=== PATIENT | male | born 1940 | race Caucasian/White ===

== ENCOUNTER 2019-07-12 12:59 | Inpatient (IN) ==
[2019-07-12] MEDS ORDERED: Dextrose Gel 15 GM/37.5 ML TUBE PO PRN ×2 (14:16)
[2019-07-12] MEDS ORDERED: *HR* Dextrose 50 % in Water (Vial) 50 ML VIAL IVP PRN (14:16)
[2019-07-12] MEDS ORDERED: D5% in Water 1,000 ML IVC PRN (14:16)
[2019-07-12] MEDS: Insulin LISPRO 300 UNITS/3 ML VIAL SQ SCH ×2 (15:54→20:43)
[2019-07-12] MEDS: Ipratropium/Albuterol Neb 3 ML IH PRN ×2 (16:21→22:14)
[2019-07-12] MEDS: *HR* LORazepam 0.5 MG TABLET PO PRN ×2 (16:54→23:37)
[2019-07-12] MEDS ORDERED: *HR* LORazepam 0.5 MG TABLET PO SCH (21:00)
[2019-07-12] MEDS: Budesonide/Formoterol 160/4.5 1 PUFF INH IH SCH (22:15)
[2019-07-13 05:50] LABS: Basophils % 0.1 %; Eosinophils % 0.2 %; Hematocrit 34.7 % (37.5-50.1); Hemoglobin 10.6 g/dL (12.9-16.9); Immature Granulocytes % 1.1 % (0-4); Lymphocytes # 0.7 K/mcL (0.6-4.6); Lymphocytes % 8.2 %; Mean Corpuscular HGB Conc 30.5 g/dL (31.6-35.5); Mean Corpuscular Hemoglobin 28.3 pg (28.0-33.3); Mean Corpuscular Volume 92.8 fL (83.0-100.0); Mean Platelet Volume 9.3 fL (9.4-12.4); Monocytes # 0.7 K/mcL (0.0-1.3); Monocytes % 7.8 %; Neutrophils # 7.2 K/mcL (1.6-8.9); Platelet Count 175 K/mcL (140-400); Red Blood Count 3.74 M/mcL (4.19-5.50); Red Cell Distribution Width 14.5 % (11.5-14.5); Segmented Neutrophils % 82.6 %; White Blood Count 8.7 K/mcL (4.3-11.1)
[2019-07-13 06:38] LABS: INR 0.9; Prothrombin Time 10.6 Seconds (9.4-12.1)
[2019-07-13 06:40] LABS: Activated Partial Thrombo Time 25.5 Seconds (26.0-36.0)
[2019-07-13 07:05] LABS: Carbon Dioxide 43 mEq/L (23-29)
[2019-07-13] MEDS: methylPREDNISolone 4 MG TABLET PO SCH ×4 (07:28→20:13)
[2019-07-13 08:03] LABS: BUN/Creatinine Ratio 60 (6-26); Blood Urea Nitrogen 35 mg/dL (8-23); Chloride 94 mEq/L (98-107); Glucose 117 mg/dL (70-105); Osmolality,Calculated 297 (280-300); Potassium 4.7 mEq/L (3.5-5.1); Sodium 139 mEq/L (136-145); eGFR For African Americans > 60 (> 60); eGFR For Non-African Americans > 60 (> 60)
[2019-07-13] MEDS: Insulin LISPRO 300 UNITS/3 ML VIAL SQ SCH ×4 (08:25→20:11)
[2019-07-13] MEDS: Insulin DETEMIR 100 UNIT/ML X5UNITS SQ SCH (08:26)
[2019-07-13] MEDS: levoFLOXacin 250 MG TABLET PO SCH (08:27)
[2019-07-13] MEDS: *HR* LORazepam 0.5 MG TABLET PO PRN ×3 (08:28→23:37)
[2019-07-13] MEDS: Ipratropium/Albuterol Neb 3 ML IH PRN ×2 (10:20→21:59)
[2019-07-13] MEDS: Budesonide/Formoterol 160/4.5 1 PUFF INH IH SCH ×2 (10:21→21:59)
[2019-07-13] MEDS: Lactobacillus 1 EACH CAP.SPRINK PO SCH (20:11)
[2019-07-14] MEDS: methylPREDNISolone 4 MG TABLET PO SCH ×3 (06:22→17:04)
[2019-07-14] MEDS: *HR* Enoxaparin 40 MG/0.4 ML SYRINGE SQ SCH (06:22)
[2019-07-14 06:56] LABS: Basophils % 0.1 %; Hematocrit 36.1 % (37.5-50.1); Hemoglobin 10.6 g/dL (12.9-16.9); Immature Granulocytes % 1.5 % (0-4); Lymphocytes # 0.3 K/mcL (0.6-4.6); Lymphocytes % 3.7 %; Mean Corpuscular HGB Conc 29.4 g/dL (31.6-35.5); Mean Corpuscular Volume 95.3 fL (83.0-100.0); Mean Platelet Volume 9.2 fL (9.4-12.4); Monocytes # 0.5 K/mcL (0.0-1.3); Monocytes % 5.8 %; Neutrophils # 7.1 K/mcL (1.6-8.9); Platelet Count 183 K/mcL (140-400); Red Blood Count 3.79 M/mcL (4.19-5.50); Red Cell Distribution Width 14.3 % (11.5-14.5); Segmented Neutrophils % 88.9 %; White Blood Count 7.9 K/mcL (4.3-11.1)
[2019-07-14] MEDS: Insulin LISPRO 300 UNITS/3 ML VIAL SQ SCH ×4 (07:40→20:40)
[2019-07-14] MEDS: Lactobacillus 1 EACH CAP.SPRINK PO SCH ×2 (07:40→20:38)
[2019-07-14] MEDS: levoFLOXacin 250 MG TABLET PO SCH (07:40)
[2019-07-14 08:00] LABS: Alanine Aminotransferase 48 Units/L (7-52); Albumin 3.2 g/dL (3.5-5.7); Albumin/Globulin Ratio 1.6 (1.1-2.2); Alkaline Phosphatase 56 Units/L (34-104); Aspartate Amino Transferase 27 Units/L (13-39); BUN/Creatinine Ratio 45 (6-26); Bilirubin,Total 0.8 mg/dL (0.3-1.0); Blood Urea Nitrogen 33 mg/dL (8-23); Carbon Dioxide 44 mEq/L (23-29); Chloride 92 mEq/L (98-107); Glucose 372 mg/dL (70-105); Osmolality,Calculated 306 (280-300); Potassium 5.1 mEq/L (3.5-5.1); Sodium 137 mEq/L (136-145); Total Protein 5.2 g/dL (6.4-8.9); eGFR For African Americans > 60 (> 60); eGFR For Non-African Americans > 60 (> 60)
[2019-07-14] MEDS: Insulin DETEMIR 100 UNIT/ML X5UNITS SQ SCH (08:00)
[2019-07-14 09:17] LABS: Estimated Average Glucose 269 mg/dl
[2019-07-14] MEDS: *HR* LORazepam 0.5 MG TABLET PO PRN ×2 (09:51→18:41)
[2019-07-14 09:55] LABS: % Iron Saturation 40 % (20-55); Ferritin 34 ng/mL (20-250); Iron 135 mcg/dL (65-175); Transferrin 241 mg/dL (203-362)
[2019-07-14] MEDS: Budesonide/Formoterol 160/4.5 1 PUFF INH IH SCH ×2 (10:48→21:08)
[2019-07-14] MEDS: Ipratropium/Albuterol Neb 3 ML IH PRN ×2 (13:53→22:25)
[2019-07-14] MEDS ORDERED: methylPREDNISolone 4 MG TABLET PO SCH (21:00)
[2019-07-15] MEDS: *HR* Enoxaparin 40 MG/0.4 ML SYRINGE SQ SCH (05:58)
[2019-07-15] MEDS: methylPREDNISolone 4 MG TABLET PO SCH ×4 (05:59→21:08)
[2019-07-15] MEDS: levoFLOXacin 250 MG TABLET PO SCH (09:13)
[2019-07-15] MEDS: Lactobacillus 1 EACH CAP.SPRINK PO SCH ×2 (09:13→21:05)
[2019-07-15] MEDS: Insulin LISPRO 300 UNITS/3 ML VIAL SQ SCH ×4 (09:21→21:05)
[2019-07-15] MEDS: Insulin DETEMIR 100 UNIT/ML X5UNITS SQ SCH (09:22)
[2019-07-15] MEDS: Budesonide/Formoterol 160/4.5 1 PUFF INH IH SCH ×2 (10:18→22:36)
[2019-07-15] MEDS: *HR* LORazepam 0.5 MG TABLET PO PRN (11:35)
[2019-07-15] MEDS: Ipratropium/Albuterol Neb 3 ML IH PRN ×2 (11:38→18:06)
[2019-07-15] MEDS ORDERED: Insulin DETEMIR 100 UNIT/ML X5UNITS SQ SCH (21:00)
[2019-07-16] MEDS: methylPREDNISolone 4 MG TABLET PO SCH ×3 (05:17→20:43)
[2019-07-16] MEDS: *HR* Enoxaparin 40 MG/0.4 ML SYRINGE SQ SCH (05:17)
[2019-07-16 07:32] LABS: Basophils % 0.2 %; Eosinophils # 0.1 K/mcL (0.0-0.6); Eosinophils % 0.7 %; Hematocrit 36.1 % (37.5-50.1); Immature Granulocytes % 1.7 % (0-4); Lymphocytes # 0.6 K/mcL (0.6-4.6); Mean Corpuscular HGB Conc 30.5 g/dL (31.6-35.5); Mean Corpuscular Hemoglobin 28.6 pg (28.0-33.3); Mean Corpuscular Volume 93.8 fL (83.0-100.0); Monocytes # 0.5 K/mcL (0.0-1.3); Monocytes % 5.9 %; Neutrophils # 7.3 K/mcL (1.6-8.9); Platelet Count 171 K/mcL (140-400); Red Blood Count 3.85 M/mcL (4.19-5.50); Red Cell Distribution Width 14.6 % (11.5-14.5); Segmented Neutrophils % 84.5 %; White Blood Count 8.7 K/mcL (4.3-11.1)
[2019-07-16 07:52] LABS: BUN/Creatinine Ratio 48 (6-26); Blood Urea Nitrogen 29 mg/dL (8-23); Carbon Dioxide 45 mEq/L (23-29); Chloride 94 mEq/L (98-107); Glucose 170 mg/dL (70-105); Magnesium 1.9 mg/dL (1.6-2.6); Osmolality,Calculated 296 (280-300); Potassium 4.7 mEq/L (3.5-5.1); Sodium 138 mEq/L (136-145); eGFR For African Americans > 60 (> 60); eGFR For Non-African Americans > 60 (> 60)
[2019-07-16] MEDS: Insulin LISPRO 300 UNITS/3 ML VIAL SQ SCH ×4 (08:07→20:43)
[2019-07-16] MEDS: Lactobacillus 1 EACH CAP.SPRINK PO SCH ×2 (08:08→20:43)
[2019-07-16] MEDS: *HR* LORazepam 0.5 MG TABLET PO PRN (08:08)
[2019-07-16] MEDS: Budesonide/Formoterol 160/4.5 1 PUFF INH IH SCH ×2 (09:05→22:08)
[2019-07-16] MEDS: Ipratropium/Albuterol Neb 3 ML IH PRN ×2 (09:05→17:23)
[2019-07-16] MEDS: Insulin DETEMIR 100 UNIT/ML X5UNITS SQ SCH (20:43)
[2019-07-17] MEDS: Ipratropium/Albuterol Neb 3 ML IH PRN ×3 (01:51→15:33)
[2019-07-17] MEDS: *HR* Enoxaparin 40 MG/0.4 ML SYRINGE SQ SCH (05:16)
[2019-07-17] MEDS: methylPREDNISolone 4 MG TABLET PO SCH ×2 (05:16→20:33)
[2019-07-17 06:03] LABS: BUN/Creatinine Ratio 47 (6-26); Blood Urea Nitrogen 27 mg/dL (8-23); Calcium 8.1 mg/dL (8.6-10.3); Carbon Dioxide 43 mEq/L (23-29); Chloride 95 mEq/L (98-107); Glucose 82 mg/dL (70-105); Osmolality,Calculated 292 (280-300); Potassium 5.1 mEq/L (3.5-5.1); Sodium 139 mEq/L (136-145); eGFR For African Americans > 60 (> 60); eGFR For Non-African Americans > 60 (> 60)
[2019-07-17] MEDS: Lactobacillus 1 EACH CAP.SPRINK PO SCH ×2 (07:29→20:33)
[2019-07-17] MEDS: Insulin LISPRO 300 UNITS/3 ML VIAL SQ SCH ×4 (07:30→20:33)
[2019-07-17] MEDS: Insulin DETEMIR 100 UNIT/ML X5UNITS SQ SCH ×2 (08:04→20:33)
[2019-07-17] MEDS: Budesonide/Formoterol 160/4.5 1 PUFF INH IH SCH ×2 (08:18→23:20)
[2019-07-17] MEDS: *HR* LORazepam 0.5 MG TABLET PO PRN (13:39)
[2019-07-18] MEDS: Levalbuterol Neb 1.25 MG/3 ML IH PRN ×4 (03:12→22:00)
[2019-07-18] MEDS: *HR* LORazepam 0.5 MG TABLET PO PRN ×3 (03:27→19:29)
[2019-07-18] MEDS: *HR* Enoxaparin 40 MG/0.4 ML SYRINGE SQ SCH (06:07)
[2019-07-18] MEDS ORDERED: methylPREDNISolone 4 MG TABLET PO SCH (06:30)
[2019-07-18] MEDS: Lactobacillus 1 EACH CAP.SPRINK PO SCH ×2 (08:40→19:29)
[2019-07-18] MEDS: Insulin DETEMIR 100 UNIT/ML X5UNITS SQ SCH ×2 (08:41→20:45)
[2019-07-18] MEDS: Insulin LISPRO 300 UNITS/3 ML VIAL SQ SCH ×4 (08:41→20:53)
[2019-07-18] MEDS: Tiotropium 18 MCG inhalation IH SCH (11:12)
[2019-07-18] MEDS: Budesonide/Formoterol 160/4.5 1 PUFF INH IH SCH ×2 (11:13→22:00)
[2019-07-19] MEDS: *HR* Enoxaparin 40 MG/0.4 ML SYRINGE SQ SCH (05:35)
[2019-07-19] MEDS: Insulin LISPRO 300 UNITS/3 ML VIAL SQ SCH ×4 (08:00→20:42)
[2019-07-19] MEDS: Levalbuterol Neb 1.25 MG/3 ML IH PRN ×3 (08:36→21:40)
[2019-07-19] MEDS ORDERED: Insulin DETEMIR 100 UNIT/ML X5UNITS SQ ONE ×2 (10:05→11:30)
[2019-07-19] MEDS: Insulin DETEMIR 100 UNIT/ML X5UNITS SQ SCH ×2 (10:06→20:38)
[2019-07-19] MEDS: Lactobacillus 1 EACH CAP.SPRINK PO SCH ×2 (10:08→20:38)
[2019-07-19] MEDS: Tiotropium 18 MCG inhalation IH SCH (10:31)
[2019-07-19] MEDS: Budesonide/Formoterol 160/4.5 1 PUFF INH IH SCH ×2 (10:31→21:40)
[2019-07-19] MEDS: *HR* LORazepam 0.5 MG TABLET PO PRN ×2 (11:52→20:38)
[2019-07-20] MEDS: *HR* Enoxaparin 40 MG/0.4 ML SYRINGE SQ SCH (05:26)
[2019-07-20] MEDS: *HR* LORazepam 0.5 MG TABLET PO PRN ×2 (05:27→20:20)
[2019-07-20] MEDS: Levalbuterol Neb 1.25 MG/3 ML IH PRN ×4 (05:38→20:00)
[2019-07-20] MEDS: Insulin LISPRO 300 UNITS/3 ML VIAL SQ SCH ×4 (08:20→20:22)
[2019-07-20] MEDS: Tiotropium 18 MCG inhalation IH SCH (09:26)
[2019-07-20] MEDS: Budesonide/Formoterol 160/4.5 1 PUFF INH IH SCH ×2 (09:26→20:00)
[2019-07-20] MEDS: Lactobacillus 1 EACH CAP.SPRINK PO SCH ×2 (09:45→20:20)
[2019-07-20] MEDS: Insulin DETEMIR 100 UNIT/ML X5UNITS SQ SCH ×2 (09:46→20:21)
[2019-07-21] MEDS: Levalbuterol Neb 1.25 MG/3 ML IH PRN ×3 (02:44→14:27)
[2019-07-21] MEDS: *HR* Enoxaparin 40 MG/0.4 ML SYRINGE SQ SCH (05:49)
[2019-07-21] MEDS: *HR* LORazepam 0.5 MG TABLET PO PRN ×2 (05:49→14:54)
[2019-07-21 06:43] LABS: Basophils % 0.5 %; Eosinophils # 0.1 K/mcL (0.0-0.6); Eosinophils % 1.6 %; Hematocrit 33.1 % (37.5-50.1); Immature Granulocytes % 6.1 % (0-4); Lymphocytes # 0.7 K/mcL (0.6-4.6); Lymphocytes % 8.4 %; Mean Corpuscular HGB Conc 30.2 g/dL (31.6-35.5); Mean Corpuscular Hemoglobin 28.3 pg (28.0-33.3); Mean Corpuscular Volume 93.8 fL (83.0-100.0); Mean Platelet Volume 9.7 fL (9.4-12.4); Monocytes # 0.7 K/mcL (0.0-1.3); Monocytes % 8.8 %; Neutrophils # 6.1 K/mcL (1.6-8.9); Platelet Count 185 K/mcL (140-400); Red Blood Count 3.53 M/mcL (4.19-5.50); Red Cell Distribution Width 14.8 % (11.5-14.5); Segmented Neutrophils % 74.6 %; White Blood Count 8.2 K/mcL (4.3-11.1)
[2019-07-21 06:58] LABS: Anisocytosis 1+ (Not Present); Basophilic Stippling 1+ (Not Present); Platelet Estimate Normal (Normal); Polychromasia 1+ (Not Present)
[2019-07-21 07:17] LABS: Alanine Aminotransferase 18 Units/L (7-52); Albumin 3.1 g/dL (3.5-5.7); Albumin/Globulin Ratio 1.5 (1.1-2.2); Alkaline Phosphatase 59 Units/L (34-104); Aspartate Amino Transferase 11 Units/L (13-39); BUN/Creatinine Ratio 39 (6-26); Bilirubin,Total 0.5 mg/dL (0.3-1.0); Blood Urea Nitrogen 22 mg/dL (8-23); Calcium 7.9 mg/dL (8.6-10.3); Carbon Dioxide 42 mEq/L (23-29); Chloride 93 mEq/L (98-107); Globulin 2.1 g/dL (2.4-3.5); Glucose 293 mg/dL (70-105); Osmolality,Calculated 296 (280-300); Potassium 4.6 mEq/L (3.5-5.1); Sodium 136 mEq/L (136-145); Total Protein 5.2 g/dL (6.4-8.9); eGFR For African Americans > 60 (> 60); eGFR For Non-African Americans > 60 (> 60)
[2019-07-21] MEDS: Tiotropium 18 MCG inhalation IH SCH (08:49)
[2019-07-21] MEDS: Budesonide/Formoterol 160/4.5 1 PUFF INH IH SCH ×2 (08:50→23:39)
[2019-07-21] MEDS: Insulin LISPRO 300 UNITS/3 ML VIAL SQ SCH ×4 (09:10→20:13)
[2019-07-21] MEDS: Insulin DETEMIR 100 UNIT/ML X5UNITS SQ SCH ×2 (09:10→20:12)
[2019-07-21] MEDS: Lactobacillus 1 EACH CAP.SPRINK PO SCH ×2 (09:12→20:12)
[2019-07-22] MEDS: *HR* Enoxaparin 40 MG/0.4 ML SYRINGE SQ SCH (06:43)
[2019-07-22] MEDS: Levalbuterol Neb 1.25 MG/3 ML IH PRN ×3 (06:52→19:27)
[2019-07-22] MEDS: Lactobacillus 1 EACH CAP.SPRINK PO SCH ×2 (08:08→21:24)
[2019-07-22] MEDS: *HR* LORazepam 0.5 MG TABLET PO PRN ×3 (08:09→21:24)
[2019-07-22] MEDS: Insulin LISPRO 300 UNITS/3 ML VIAL SQ SCH ×4 (08:11→21:24)
[2019-07-22] MEDS: Insulin DETEMIR 100 UNIT/ML X5UNITS SQ SCH ×2 (08:56→21:24)
[2019-07-22] MEDS: Tiotropium 18 MCG inhalation IH SCH (09:55)
[2019-07-22] MEDS: Budesonide/Formoterol 160/4.5 1 PUFF INH IH SCH ×2 (09:55→19:28)
[2019-07-23] MEDS: Levalbuterol Neb 1.25 MG/3 ML IH PRN ×3 (01:18→21:38)
[2019-07-23] MEDS: *HR* Enoxaparin 40 MG/0.4 ML SYRINGE SQ SCH (06:56)
[2019-07-23] MEDS: *HR* LORazepam 0.5 MG TABLET PO PRN ×2 (06:56→22:46)
[2019-07-23] MEDS: Lactobacillus 1 EACH CAP.SPRINK PO SCH ×2 (08:13→20:54)
[2019-07-23] MEDS: Insulin DETEMIR 100 UNIT/ML X5UNITS SQ SCH ×2 (08:13→20:55)
[2019-07-23] MEDS: Insulin LISPRO 300 UNITS/3 ML VIAL SQ SCH ×4 (08:15→20:55)
[2019-07-23] MEDS: Tiotropium 18 MCG inhalation IH SCH (11:59)
[2019-07-23] MEDS: Budesonide/Formoterol 160/4.5 1 PUFF INH IH SCH ×2 (12:00→21:38)
[2019-07-24] MEDS: *HR* Enoxaparin 40 MG/0.4 ML SYRINGE SQ SCH (06:25)
[2019-07-24] MEDS: Lactobacillus 1 EACH CAP.SPRINK PO SCH ×2 (06:25→20:26)
[2019-07-24 06:46] LABS: Hematocrit 34.5 % (37.5-50.1); Hemoglobin 10.5 g/dL (12.9-16.9); Mean Corpuscular HGB Conc 30.4 g/dL (31.6-35.5); Mean Corpuscular Hemoglobin 28.5 pg (28.0-33.3); Mean Corpuscular Volume 93.5 fL (83.0-100.0); Mean Platelet Volume 9.1 fL (9.4-12.4); Platelet Count 208 K/mcL (140-400); Red Blood Count 3.69 M/mcL (4.19-5.50); Red Cell Distribution Width 14.8 % (11.5-14.5); White Blood Count 6.9 K/mcL (4.3-11.1)
[2019-07-24 07:17] LABS: Alanine Aminotransferase 19 Units/L (7-52); Albumin 3.1 g/dL (3.5-5.7); Albumin/Globulin Ratio 1.1 (1.1-2.2); Alkaline Phosphatase 70 Units/L (34-104); Aspartate Amino Transferase 13 Units/L (13-39); BUN/Creatinine Ratio 44 (6-26); Bilirubin,Total 0.5 mg/dL (0.3-1.0); Blood Urea Nitrogen 23 mg/dL (8-23); Calcium 8.2 mg/dL (8.6-10.3); Carbon Dioxide 43 mEq/L (23-29); Chloride 95 mEq/L (98-107); Globulin 2.7 g/dL (2.4-3.5); Glucose 107 mg/dL (70-105); Magnesium 1.9 mg/dL (1.6-2.6); Osmolality,Calculated 292 (280-300); Potassium 4.7 mEq/L (3.5-5.1); Sodium 139 mEq/L (136-145); Total Protein 5.8 g/dL (6.4-8.9); eGFR For African Americans > 60 (> 60); eGFR For Non-African Americans > 60 (> 60)
[2019-07-24] MEDS: Insulin DETEMIR 100 UNIT/ML X5UNITS SQ SCH ×2 (09:45→20:28)
[2019-07-24] MEDS: Insulin LISPRO 300 UNITS/3 ML VIAL SQ SCH ×4 (09:54→20:27)
[2019-07-24] MEDS: Budesonide/Formoterol 160/4.5 1 PUFF INH IH SCH ×2 (10:39→23:16)
[2019-07-24] MEDS: Tiotropium 18 MCG inhalation IH SCH (10:39)
[2019-07-24] MEDS: Levalbuterol Neb 1.25 MG/3 ML IH PRN ×2 (13:19→19:57)
[2019-07-24] MEDS: *HR* LORazepam 0.5 MG TABLET PO PRN (20:26)
[2019-07-25] MEDS: *HR* Enoxaparin 40 MG/0.4 ML SYRINGE SQ SCH (05:14)
[2019-07-25 07:01] VITALS: BP 178/84
[2019-07-25] MEDS: Levalbuterol Neb 1.25 MG/3 ML IH PRN (09:04)
[2019-07-25] MEDS: Budesonide/Formoterol 160/4.5 1 PUFF INH IH SCH (09:05)
[2019-07-25] MEDS: Tiotropium 18 MCG inhalation IH SCH (09:05)
[2019-07-25] MEDS: Lactobacillus 1 EACH CAP.SPRINK PO SCH (09:30)
[2019-07-25] MEDS: Insulin LISPRO 300 UNITS/3 ML VIAL SQ SCH ×2 (09:34→12:41)
[2019-07-25] MEDS: Insulin DETEMIR 100 UNIT/ML X5UNITS SQ SCH (09:34)
[2019-07-25] MEDS: *HR* LORazepam 0.5 MG TABLET PO PRN (13:32)
== END 2019-07-25 16:30 | disposition home or self-care (01) | DRG 190 ==
LOC: INPPIK 14:27
PROVIDERS: ADMIT Internal Medicine; ATTEND Family Medicine

== ENCOUNTER 2019-08-23 12:57 | Observation (INO) ==
[2019-08-23] MEDS ORDERED: Ipratropium/Albuterol Neb 3 ML IH ONE (13:14)
[2019-08-23 13:46] LABS: Basophils % 0.2 %; Eosinophils % 0.2 %; Hematocrit 32.8 % (37.5-50.1); Hemoglobin 9.5 g/dL (12.9-16.9); Lymphocytes # 0.6 K/mcL (0.6-4.6); Lymphocytes % 4.3 %; Mean Corpuscular Hemoglobin 27.9 pg (28.0-33.3); Mean Corpuscular Volume 96.2 fL (83.0-100.0); Mean Platelet Volume 9.5 fL (9.4-12.4); Monocytes # 0.8 K/mcL (0.0-1.3); Monocytes % 5.8 %; Neutrophils # 12.6 K/mcL (1.6-8.9); Platelet Count 261 K/mcL (140-400); Red Blood Count 3.41 M/mcL (4.19-5.50); Red Cell Distribution Width 14.8 % (11.5-14.5); Segmented Neutrophils % 87.5 %; White Blood Count 14.4 K/mcL (4.3-11.1)
[2019-08-23 13:53] LABS: ABG Base Excess 17 mEq/L (-2 to 3); ABG HCO3 46 mEq/L (21-27); ABG Oxygen Saturation 89 % (95-98); ABG PCO2 79 mmHg (35-45); ABG PH 7.37 pH Units (7.32-7.45); ABG PO2 62 mmHg (85-104); ABG TCO2 48 mEq/L (20-26)
[2019-08-23 13:53] LABS: INR 1.3; Prothrombin Time 15.3 Seconds (9.4-12.1)
[2019-08-23 14:22] LABS: BUN/Creatinine Ratio 64 (6-26); Blood Urea Nitrogen 45 mg/dL (8-23); Calcium 8.6 mg/dL (8.6-10.3); Carbon Dioxide 49 mEq/L (23-29); Chloride 92 mEq/L (98-107); Glucose 71 mg/dL (70-105); Osmolality,Calculated 300 (280-300); Potassium 5.3 mEq/L (3.5-5.1); Sodium 140 mEq/L (136-145); eGFR For African Americans > 60 (> 60); eGFR For Non-African Americans > 60 (> 60)
[2019-08-23 15:10] LABS: Bilirubin,Urine Negative (Negative); Blood,Urine Large (Negative); Clarity,Urine Clear (Clear); Color,Urine Yellow (Yellow); Glucose,Urine (UA) Normal (Normal); Ketones,Urine Negative (Negative); Leukocyte Esterase,Urine Negative (Negative); Nitrite,Urine Negative (Negative); PH,Urine 7.5 pH Units (5.0-8.0); Protein,Urine Negative (Neg-Trace); Specific Gravity,Urine 1.015 (1.010-1.025)
[2019-08-23 15:18] LABS: Bacteria,Urine Few per hpf (None-Few); Mucus,Urine Few per lpf (Few); RBC,Urine TNTC per hpf (0-3); Squamous Epithelial Cell,Urine Few per lpf (None-Few)
[2019-08-23] MEDS ORDERED: 0.9 % Sodium Chloride 500 ML IVC ONE ×2 (15:25→16:59)
[2019-08-23] MEDS ORDERED: Naloxone 0.4 MG/ML INJ IVP PRN (15:35)
[2019-08-23] MEDS ORDERED: 0.9 % Sodium Chloride w KCl 20 MEQ/1,000 ML MLS IVC SCH (15:45)
[2019-08-23] MEDS ORDERED: 0.9 % Sodium Chloride 1,000 ML IVC SCH (16:00)
[2019-08-23] MEDS: Ipratropium/Albuterol Neb 3 ML IH SCH ×2 (16:06→19:38)
[2019-08-23] MEDS ORDERED: ALPRAZolam 0.25 MG TABLET PO PRN (17:36)
[2019-08-23] MEDS ORDERED: hydrOXYzine pamoate 25 MG CAPSULE PO PRN (17:36)
[2019-08-23] MEDS ORDERED: Metoprolol XL (24 HR) Succ 25 MG TAB.ER.24H PO SCH (17:45)
[2019-08-23] MEDS ORDERED: Diltiazem CD (24hr) 180 MG CAPSULE PO SCH (17:45)
[2019-08-23] MEDS ORDERED: Insulin LISPRO 300 UNITS/3 ML VIAL SQ SCH (17:45)
[2019-08-23] MEDS ORDERED: *HR* Dextrose 50 % in Water (Vial) 50 ML VIAL IVP PRN (17:49)
[2019-08-23] MEDS ORDERED: Dextrose Gel 15 GM/37.5 ML TUBE PO PRN ×2 (17:49)
[2019-08-23] MEDS ORDERED: D5% in Water 1,000 ML IVC PRN (17:49)
[2019-08-23] MEDS ORDERED: levoFLOXacin 750 MG/150 ML 750 MG/150 ML BAG IVPB SCH (18:00)
[2019-08-23] MEDS ORDERED: MethylPREDNISolone 40 MG/ML VIAL IVP SCH (18:00)
[2019-08-23] MEDS ORDERED: Cefepime HCl 1,000 MG in 0.9 % Sodium Chloride Mini Bag 100 ML IVPB SCH (18:00)
[2019-08-23] MEDS ORDERED: *HR* LORazepam 2 MG/ML VIAL IVP ONE (18:53)
[2019-08-23 18:58] VITALS: BP 102/60
[2019-08-23] MEDS ORDERED: Apixaban 5 MG TABLET PO SCH (21:00)
[2019-08-23] MEDS ORDERED: Insulin DETEMIR 100 UNIT/ML X5UNITS SQ SCH (21:00)
[2019-08-23 23:43] LABS: Adenovirus Not Detected (Not Detect); Bordetella Pertussis Not Detected (Not Detect); Chlamydophila pneumoniae Not Detected (Not Detect); Coronavirus 229E Not Detected (Not Detect); Coronavirus HKU1 Not Detected (Not Detect); Coronavirus NL63 Not Detected (Not Detect); Coronavirus OC43 Not Detected (Not Detect); Human Metapneumovirus Not Detected (Not Detect); Human Rhinovirus/Enterovirus Not Detected (Not Detect); Influenza A Subtype 2009 H1 Not Detected (Not Detect); Influenza B Not Detected (Not Detect); Mycoplasma pneumoniae Not Detected (Not Detect); Parainfluenza Virus 1 Not Detected (Not Detect); Parainfluenza Virus 2 Not Detected (Not Detect); Parainfluenza Virus 3 Not Detected (Not Detect); Parainfluenza Virus 4 Not Detected (Not Detect); Respiratory Syncytial Virus Not Detected (Not Detect)
[2019-08-24] MEDS ORDERED: Piperacillin/Tazobactam 3.375 GM in 0.9 % Sodium Chloride Mini Bag 100 ML IVPB SCH
[2019-08-24] MEDS ORDERED: Aspirin Enteric Coated 81 MG Tablet PO SCH (09:00)
[2019-08-24] MEDS ORDERED: Multivit/Ca/Min/Fe/FA 1 TAB TABLET PO SCH (09:00)
[2019-08-27 09:41] LABS: Mycoplasma pneumoniae IgG 0.1 U/L (<=0.09)
== END 2019-08-23 21:50 | disposition short-term general hospital (02) ==
LOC: EMEROOPIK 12:57 → INPPIK 12:57
PROVIDERS: ADMIT Family Medicine; ATTEND Family Medicine